=== PATIENT | male | born 1955 | race African-American/Black ===

== ENCOUNTER 2018-05-03 14:28 | Emergency (ER) | payer MEDICARE, MEDICAID ==
[~2018-05-03] VITALS: Ht 180.3 cm; Wt 68.0 kg
[~2018-05-03 14:28] MED LIST: ASPI-986 PO
[2018-05-03 14:31] VITALS: BP 106/69
== END 2018-05-03 18:04 | disposition left against medical advice (07) ==
LOC: ER 14:28
DX: Z53.21 Procedure and treatment not carried out due to patient leaving prior to being seen by health care provider (principal)